=== PATIENT | male | born 1965 | race Caucasian/White ===

== ENCOUNTER → 2019-05-17 10:02 | Outpatient (BNVA) | payer SELFPAY | PROVIDERS: PCP Nurse Practitioner Family; Visit Provider Nurse Practitioner Family | DX: J02.8 Acute pharyngitis due to other specified organisms (principal); B37.0 Candidal stomatitis; B96.89 Other specified bacterial agents as the cause of diseases classified elsewhere | CPT/HCPCS: 87081; 87880 ==